=== PATIENT | female | born 1940 | race Caucasian/White ===

== ENCOUNTER 2021-07-24 01:39 | Observation (INO) ==
[2021-07-24] MEDS ORDERED: Isovue-370 500 ML BOTTLE IVP ONE (01:48)
[2021-07-24 02:02] LABS: Hematocrit 43.8 % (35.3-44.9); Hemoglobin 14.4 g/dL (11.5-15.4); Mean Corpuscular HGB Conc 32.9 g/dL (31.6-35.5); Mean Corpuscular Hemoglobin 31.3 pg (28.0-33.3); Mean Corpuscular Volume 95.2 fL (83.0-100.0); Mean Platelet Volume 8.8 fL (9.4-12.4); Platelet Count 272 K/mcL (140-400); Red Cell Distribution Width 13.1 % (11.5-14.5); White Blood Count 13.5 K/mcL (4.3-11.1)
[2021-07-24 02:29] LABS: BUN/Creatinine Ratio 21 (6-26); Blood Urea Nitrogen 18 mg/dL (8-23); Calcium 9.2 mg/dL (8.6-10.3); Carbon Dioxide 24 mEq/L (23-29); Chloride 106 mEq/L (98-107); Creatine Kinase 51 Units/L (30-223); Ethanol < 10 mg/dL (Less than 10); Glucose 139 mg/dL (70-105); Osmolality,Calculated 292 (280-300); Potassium 4.2 mEq/L (3.5-5.1); Sodium 139 mEq/L (136-145); eGFR For African Americans > 60 (> 60); eGFR For Non-African Americans > 60 (> 60)
[2021-07-24] MEDS ORDERED: Aspirin 81 MG TAB.CHEW PO ONE (03:01)
[2021-07-24] MEDS ORDERED: Acetaminophen 325 MG TABLET PO PRN (03:03)
[2021-07-24] MEDS ORDERED: Perflutren Lipid Microsphere 1.3 ML in 0.9 % Sodium Chloride 8.7 ML IVP PRN (03:03)
[2021-07-24] MEDS ORDERED: Naloxone 0.4 MG/ML INJ IVP PRN (03:03)
[2021-07-24] MEDS ORDERED: Gadolinium Contrast Agent (WT Based) IV PRN (03:03)
[2021-07-24] MEDS ORDERED: *HR* HYDROcodone/Acet 5/325 mg TABLET PO PRN (03:03)
[2021-07-24] MEDS ORDERED: Ondansetron ODT 4 MG TAB.RAPDIS SL PRN (03:03)
[2021-07-24] MEDS ORDERED: *HR* OxyCODONE Immed Rel 5 MG TABLET PO PRN (03:03)
[2021-07-24] MEDS ORDERED: Melatonin 3 MG TABLET PO PRN (03:03)
[2021-07-24] MEDS ORDERED: 0.9 % Sodium Chloride 1,000 ML IVC SCH (03:15)
[2021-07-24 05:59] LABS: Chol/HDL Ratio 4.4 (0-4.9); Cholesterol 212 mg/dL (< 200); HDL Cholesterol 48 mg/dL (40-59); LDL Cholesterol,Calculated 136 mg/dL (< 100); LDL Cholesterol,Direct 159 mg/dL (75-193); Triglycerides 141 mg/dL (< 150); Troponin I < 0.03 ng/mL (< 0.04)
[2021-07-24 06:03] LABS: INR 1.3; Prothrombin Time 14.3 Seconds (9.4-12.1)
[2021-07-24 06:12] LABS: Thyroid Stimulating Hormone 1.704 mcIU/mL (0.340-5.600)
[2021-07-24 06:24] LABS: Folate 16.2 ng/mL (3.0-16.0)
[2021-07-24 06:26] LABS: Estimated Average Glucose 140 mg/dl; Hemoglobin A1C 6.5 %
[2021-07-24 08:04] VITALS: O2SAT 95
[2021-07-24] MEDS ORDERED: Aspirin Enteric Coated 81 MG Tablet PO SCH (09:00)
[2021-07-24] MEDS ORDERED: Apixaban 5 MG TABLET PO SCH (09:00)
[2021-07-24 11:05] VITALS: BP 158/88; PULSE 72; TEMP 97.6
[2021-07-24] MEDS ORDERED: Cyanocobalamin (B-12) 1,000 MCG/ML VIAL SQ ONE (15:06)
== END 2021-07-24 16:23 | disposition home or self-care (01) ==
LOC: 2ANU 01:39 → EMEROOARM 01:39 → SUATTDRO 03:18 → 3BNU 03:19
PROVIDERS: ADMIT Internal Medicine; ATTEND Registered Nurse